=== PATIENT | male | born 1970 | race Two or more races ===

== ENCOUNTER 2019-07-18 11:16 | Outpatient (CLI) | payer OTHER ==
[~2019-07-18 11:16] MED LIST: CRESTOR20 MG; SYNTHROID50 MCG
== END 2019-07-18 11:20 | disposition home or self-care (01) ==
LOC: RAD 11:16
DX: M99.01 Segmental and somatic dysfunction of cervical region (principal); M99.02 Segmental and somatic dysfunction of thoracic region; M99.03 Segmental and somatic dysfunction of lumbar region; M54.2 Cervicalgia; M54.5 Low back pain

== ENCOUNTER 2021-06-28 07:57 | Outpatient (CLI) | payer OTHER | END 2021-06-28 08:07 | disposition home or self-care (01) | LOC: SONOGRAMA 07:57 | PROVIDERS: ATTEND Physical Medicine & Rehabilitation | DX: M25.511 Pain in right shoulder (principal) ==

== ENCOUNTER → 2021-09-13 | Outpatient (CLI) | payer OTHER | END | disposition home or self-care (01) | LOC: PPH VACUNA 08:00 | PROVIDERS: ATTEND Emergency Medicine Pediatric Emergency Medicine | DX: Z23 Encounter for immunization (principal) ==

== ENCOUNTER 2022-03-23 12:30 | Outpatient (CLI) | payer OTHER | END 2022-03-23 12:40 | disposition home or self-care (01) | LOC: RAD 12:30 | PROVIDERS: ATTEND Physical Medicine & Rehabilitation | DX: M79.671 Pain in right foot (principal) ==